=== PATIENT | male | born 1975 | race Caucasian/White ===

== ENCOUNTER 2019-05-02 17:29 | Emergency (ER) | payer OTHER ==
[2019-05-02 17:53] VITALS: BP 218/142
--- NOTE | 2019-05-02 18:04 | UC ---
Respiratory Complaint HPI - HPI Summary HPI Summary: patient her do to sore throat---upon assessment patient has had 1 week of worsening sob, orthopnea, no chest pain and now laryngititis - History of Current Complaint Chief Complaint: UCGeneralIllness Stated Complaint: LOSING VOICE, COUGH Time Seen by Provider: 05/02/19 17:33 Hx Obtained From: Patient Onset/Duration: Gradual Onset, Lasting Weeks - 1 Timing: Constant Pain Intensity: 0 Aggravating Factors: Exertion, Recumbent Position Alleviating Factors: Nothing Associated Signs And Symptoms: Positive: Dyspnea, Wheezing, URI - Allergies/Home Medications Allergies/Adverse Reactions: Allergies Allergy/AdvReac Type Severity Reaction Status Date / Time No Known Allergies Allergy Verified 09/04/12 19:10 PMH/Surg Hx/FS Hx/Imm Hx Previously Healthy: No Cardiovascular History: Hypertension - was treated in his 30's but has been non adherant to treatment for about 10 years - Surgical History Surgical History: Yes Surgery Procedure, Year, and Place: APPENDECTOMY - Family History Known Family History: Positive: Other - throat cancer - Social History Occupation: Employed Full-time Lives: Alone Alcohol Use: None Substance Use Type: None Smoking Status (MU): Never Smoked Tobacco Have You Smoked in the Last Year: No Review of Systems All Other Systems Reviewed And Are Negative: Yes Constitutional: Positive: Negative Skin: Positive: Negative Eyes: Positive: Negative ENT: Positive: Sore Throat Respiratory: Positive: Shortness Of Breath Cardiovascular: Positive: Negative Gastrointestinal: Positive: Negative Genitourinary: Positive: Negative Motor: Positive: Negative Neurovascular: Positive: Negative Musculoskeletal: Positive: Negative Neurological: Positive: Negative Psychological: Positive: Negative Is Patient Immunocompromised?: No Physical Exam Triage Information Reviewed: Yes Appearance: Ill-Appearing, Pain Distress, Obese Vital Signs: Initial Vital Signs Temp 99.9 F 05/02/19 17:48 Pulse 116 05/02/19 17:48 Resp 32 05/02/19 17:48 BP 218/142 05/02/19 17:48 Pulse Ox 93 05/02/19 17:48 Vital Signs Reviewed: Yes Eye Exam: Normal Eyes: Positive: Conjunctiva Clear ENT Exam: Normal ENT: Positive: Normal ENT inspection, Hearing grossly normal, Hoarse voice. Negative: Nasal congestion, Trismus, Muffled voice, Sinus tenderness Dental Exam: Normal Neck exam: Normal Neck: Positive: Supple, Nontender Respiratory Exam: Other Respiratory: Positive: Chest non-tender, Respiratory distress, Wheezing. Negative: No respiratory distress, No accessory muscle use Cardiovascular: Positive: Pulses Normal, Brisk Capillary Refill, Tachycardia Musculoskeletal Exam: Normal Musculoskeletal: Positive: Strength Intact, ROM Intact, No Edema Neurological Exam: Normal Neurological: Positive: Alert, Muscle Tone Normal Psychological Exam: Normal Skin Exam: Normal Diagnostics - EKG Cardiac Rate: Tachycardia Cardiac Rhythm: Sinus: Normal, Other Rhythm: Normal - RBBB Ectopy: None ST Segment: Normal EKG Comparison: Other - no EKG on file to compair Respiratory Course/Dx - Course Course Of Treatment: patient will sign out AMA as he is refusing EMS---however he will do directly to the emergency department for further assessment----report given to ED change nurse to be aware of client for triage assessment - Differential Dx/Diagnosis Provider Diagnosis: Hypertensive crisis, Shortness of breath Discharge ED - Sign-Out/Discharge Documenting (check all that apply): Patient Departure All imaging exams completed and their final reports reviewed: No Studies - Discharge Plan Condition: Guarded Disposition: HOME-RECOMMEND TO ED Patient Education Materials: Hypertensive Crisis (ED) Referrals: Care [facility] [Outside] - As Soon As Possible - Billing Disposition and Condition Condition: GUARDED Disposition: Home-Recommend to ED
== END 2019-05-02 18:10 | disposition home health service (06) ==
LOC: UCEAST 17:29
DX: I16.9 Hypertensive crisis, unspecified (principal); I10 Essential (primary) hypertension; R06.02 Shortness of breath
CPT/HCPCS: 93005; 99202; G0463

== ENCOUNTER 2019-05-02 18:29 | Inpatient (IN) | payer OTHER ==
--- NOTE | 2019-05-02 18:59 | ED ---
Influenza-Like Illness - HPI Summary HPI Summary: Patient complains of shortness of breath when lying down 1 week, sore throat, productive cough 1 week, losing voice 3 days. Denies fever, CP, N/V/D, abdominal pain, change in urine, change in BM. Medical history is HTN, patient noncompliant for many years. Has not seen PCP in many years. Nonsmoker. Denies known cardiac history. Patient is obese. - History of Current Complaint Chief Complaint: EDFluSymptoms Time Seen by Provider: 05/02/19 18:57 Hx Obtained From: Patient, Family/End Worker Onset/Duration: Gradual Onset, Lasting Days Severity: Moderate Associated Signs & Symptoms: Cough, Sore Throat, Headache - Allergy/Home Medications Allergies/Adverse Reactions: Allergies Allergy/AdvReac Type Severity Reaction Status Date / Time No Known Allergies Allergy Verified 05/02/19 18:39 PMH/Surg Hx/FS Hx/Imm Hx Endocrine/Hematology History: Denies: Hx Anticoagulant Therapy Cardiovascular History: Reports: Hx Hypertension History: Denies: Hx Dialysis Sensory History: Denies: Hx Eye Prosthesis Opthamlomology History: Denies: Hx Legally Blind EENT History: Denies: Hx Deafness Neurological History: Denies: Hx Dementia - Surgical History Surgery Procedure, Year, and Place: APPENDECTOMY Infectious Disease History: No Infectious Disease History: Denies: Traveled Outside the [place] in Last 30 Days - Family History Known Family History: Positive: Other - throat cancer - Social History Alcohol Use: None Substance Use Type: Reports: None Smoking Status (MU): Never Smoked Tobacco Have You Smoked in the Last Year: No Review of Systems Constitutional: Negative Eyes: Negative ENT: Negative Cardiovascular: Negative Positive: Shortness Of Breath, Cough Gastrointestinal: Negative Genitourinary: Negative Musculoskeletal: Negative Skin: Negative Neurological: Negative Psychological: Normal All Other Systems Reviewed And Are Negative: Yes Physical Exam Triage Information Reviewed: Yes Vital Signs On Initial Exam: Initial Vitals Temp Pulse Resp BP Pulse Ox 97.8 F 114 16 212/100 96 05/02/19 18:32 05/02/19 18:32 05/02/19 18:32 05/02/19 18:32 05/02/19 18:32 Vital Signs Reviewed: Yes Appearance: Positive: Well-Appearing Skin: Positive: Warm Head/Face: Positive: Normal Head/Face Inspection Eyes: Positive: Normal ENT: Positive: Normal ENT inspection Neck: Positive: Supple Respiratory/Lung Sounds: Positive: Wheezes - bilat Cardiovascular: Positive: Tachycardia Abdomen Description: Positive: Nontender Musculoskeletal: Positive: Normal Neurological: Positive: Normal Psychiatric: Positive: Normal AVPU Assessment: Alert - Nereida Coma Scale Best Eye Response: 4 - Spontaneous Best Motor Response: 6 - Obeys Commands Best Verbal Response: 5 - Oriented Coma Scale Total: 15 Procedures - Sedation Patient Received Moderate/Deep Sedation with Procedure: No Diagnostics - Vital Signs Vital Signs Temp Pulse Resp BP Pulse Ox 05/02/19 18:32 97.8 F 114 16 212/100 96 - Laboratory Result Diagrams: 05/03/19 06:00 05/03/19 06:00 Lab Statement: Any lab studies that have been ordered have been reviewed, and results considered in the medical decision making process. Flu Symptom Course/Dx - Course Course Of Treatment: Patient complains of shortness of breath when lying down 1 week, sore throat, productive cough 1 week, losing voice 3 days. Denies fever, CP, N/V/D, abdominal pain, change in urine, change in BM. Medical history is HTN, patient noncompliant for many years. Has not seen PCP in many years. Nonsmoker. Denies known cardiac history. Patient is obese. Patient tachycardic with heart rate of 114. Tachypneic with respiratory rate of 33. BP initially 218/159. Improved with labetalol 20 mg IV. Chest x-ray unremarkable. EKG sinus tachycardia, heart rate 109, RBBB. CTA chest unremarkable. Elevated troponins 0.07, 0.08. BNP 1100. Admitted to hospitalist. - Diagnoses Provider Diagnoses: CHF (congestive heart failure), Respiratory infection, Hypertensive urgency Discharge ED - Sign-Out/Discharge Documenting (check all that apply): Patient Departure All imaging exams completed and their final reports reviewed: No - Discharge Plan Condition: Stable Disposition: ADMITTED TO [facility] - Billing Disposition and Condition Condition: STABLE Disposition: Admitted to [facility] - Attestation Statements Provider Attestation: Patient was presented to me by Diony HERNADEZ. Patient with 1 week of exertional shortness of breath, orthopnea, cough. Patient's had no fevers, chest pain. Patient does have swelling in his legs at baseline with no change in that per him. Patient had laboratory performed showed an elevated troponin and BNP. Patient said he had one episode of hemoptysis earlier this week so a CTA was performed to rule out PE which was negative. Given patient's elevated cardiac enzymes, patient was admitted for rule out myocarditis versus new-onset heart failure.
[2019-05-02 19:20] LABS: ABS Basophils 0.1 10^3/ul (0-0.2); ABS Eosinophils 0.3 10^3/ul (0-0.6); ABS Monocytes 0.7 10^3/ul (0-0.8); ABS Neutrophils 7.5 10^3/ul (1.5-7.7); Eosinophil % 3.3 %; Hematocrit 44 % (42-52); Hemoglobin 15.6 g/dL (14.0-18.0); Lymphocyte % 10.3 %; Mean Corpuscular HGB Conc 36 g/dL (31-36); Mean Corpuscular Hemoglobin 32 pg (27-31); Mean Corpuscular Volume 89 fL (80-94); Mean Platelet Volume 8.2 fL (7.4-10.4); Platelet Count 315 10^3/uL (150-450); Red Blood Count 4.96 10^6 /uL (4.18-5.48); Red Cell Distribution Width 14 % (10-15); White Blood Count 9.5 10^3/uL (3.5-10.8)
[2019-05-02 19:34] LABS: ALT 18 U/L (7-52); AST 16 U/L (13-39); Albumin 3.8 g/dL (3.2-5.2); Albumin/Globulin Ratio 1.2 (1-3); Alkaline Phosphatase 77 U/L (34-104); Anion Gap 6 mmol/L (2-11); Blood Urea Nitrogen 9 mg/dL (6-24); C Reactive Protein 19.65 mg/L (<8.01); CO2 Carbon Dioxide 29 mmol/L (22-32); Calcium 9.2 mg/dL (8.6-10.3); Chloride 103 mmol/L (101-111); EGFR African American 110.4 (>60); EGFR Non-African American 91.3 (>60); Globulin 3.2 g/dL (2-4); Glucose 129 mg/dL (70-100); Potassium 3.6 mmol/L (3.5-5.0); Sodium 138 mmol/L (135-145)
[2019-05-02 19:36] LABS: Rapid Strep Molecular Negative (Negative)
[2019-05-02 19:40] LABS: Troponin I 0.07 ng/mL (<0.03)
[2019-05-02] MEDS ORDERED: Acetaminophen TAB* 325 MG PO ONE (19:42)
[2019-05-02] MEDS ORDERED: Aspirin 81 mg CHEW TAB* 81 MG TAB.CHEW PO ONE (19:42)
[2019-05-02 19:56] LABS: TSH (Thyroid Stimulating Horm) 0.69 mcIU/mL (0.34-5.60)
[2019-05-02] MEDS ORDERED: Iodixanol* (CONTRAST) 320 MG/ML 100 ML SDV IV ONE (19:58)
[2019-05-02] MEDS ORDERED: Labetalol IV* 5 MG/ML 20 ML VIAL IV PUSH ONE (21:55)
[2019-05-02 22:22] LABS: Troponin I 0.08 ng/mL (<0.03)
[2019-05-02] MEDS ORDERED: Enoxaparin(*) 40 MG/0.4 ML SYR SUBCUT SCH (23:00)
[2019-05-02] MEDS: Lisinopril TAB* 10 MG PO SCH (23:19)
[2019-05-02] MEDS: Carvedilol TAB* 25 MG PO SCH (23:19)
[2019-05-03 01:31] LABS: Troponin I 0.09 ng/mL (<0.03)
--- NOTE | 2019-05-03 01:34 | HP ---
ADMISSION HISTORY AND PHYSICAL: DATE OF ADMISSION: 05/02/19 CHIEF COMPLAINT: Shortness of breath and hoarseness. HISTORY OF PRESENT ILLNESS: This is a 43-year-old gentleman with no significant past medical history as he has not seen a physician in over 10 years , but before that, he was known to have high blood pressure and was on medication until they ran out and he never followed up for refill. His last use of blood pressure medication was about 10 to 15 years ago. He stated for the last 1 week he has been having progressive shortness of breath, especially worse when he is lying down and he is also having difficulty breathing with any activity, even minor activity such as eating, drinking, or lying flat. He does get up at night complaining of severe shortness of breath needing him to turn on the fan and he has been having cough, which is productive of greenish yellow sputum and he has also had increased headache on the right temporal region. He was noted to have elevated blood pressure in the urgent care where he initially went to and was subsequently sent to the emergency room. The patient stated that his headache and his shortness of breath had improved after he received labetalol and Tylenol in the ER. He otherwise was having some coughing spells, which is why he was having an emesis bag next to him, but denies any nausea, vomiting, any constipation, diarrhea, any chest pain or abdominal pain, any palpitations, any fever, or chills. He was, however, complaining of feeling sweaty. He also has been known to be a heavy snorer and states that recently he has been having to sleep on an upright basis. The patient has also been having increasing swelling, especially in his ankles. PAST MEDICAL HISTORY: As mentioned, he has been diagnosed with hypertension, but has been off medications for 10 to 15 years and morbid obesity with BMI noted to be 43. He was admitted in 2001 for depression and suicidal ideation, but currently not on any antipsychotic medications. He has been diagnosed with a seizure in his teenage years, but he states it never recurred for the last 20 to 30 years. PAST SURGICAL HISTORY: He has had an appendectomy when he was 10 to 11 years old and he has also had trauma to the right middle finger, which needed surgical correction. HOME MEDICATIONS: Not on any medications. ALLERGIES: No known allergies. FAMILY HISTORY: Mother age 69 has high blood pressure and had 2 strokes. Father, he is unsure of, thinks that he is in his 60s, alive and unsure of any medical problems. His half brother who is present at bedside states that he had a heart murmur and low blood pressure. SOCIAL HISTORY: The patient smoked for about 15 years, quit over 10 years ago. He uses alcohol occasionally, last use was 3 months ago and the one prior to that was over a year ago. Denies any drug use. 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 REVIEW OF SYSTEMS: A 14-point review of systems did not reveal any new information other than what is mentioned in the HPI. PHYSICAL EXAMINATION GENERAL: The patient is awake, alert, oriented x3, does not appear to be in any acute distress. VITAL SIGNS: In the ER, initial BP was noted to be 212/100 and after the IV labetalol, his blood pressure improved to 156/118; heart rate initially was noted to be 110 to 121, improved to 92; respiration rate was noted to be 28; saturating 92% on room air; temperature was recorded at 97.8 here and in the urgent care it was 99.9. HEAD AND NECK: Atraumatic, normocephalic. Bilateral pupils reactive. Oral mucosa was moist. Neck supple. No jugular venous distention. LUNGS: Clear to auscultation bilaterally. No wheezing, rhonchi, or rales. HEART: S1 and S2, regular, tachycardia. No murmurs, rubs or gallops were appreciated. ABDOMEN: Obese, soft, nontender, nondistended. EXTREMITIES: The patient did have bilateral lower extremity pitting edema up to the knee, which was noted to be 2+ in severity. The patient stated that it was much worse when he initially came in but has kept his legs up ever since he arrived in the emergency room, which decreased his swelling quite a bit during my evaluation. DIAGNOSTIC STUDIES/LAB DATA: CBC was unremarkable. Comprehensive metabolic panel was unremarkable except for minimally elevated random glucose at 129. Troponin was noted to be minimally elevated at 0.07 and subsequent troponin was 0.08. B-Kathy was noted to be elevated at 1107. TSH was normal. Rapid Strep was noted to be negative. PA and lateral chest x-ray appears to be unremarkable. Official read by radiologist is still pending. CTA of the chest was showing no evidence of PE, no other chest pathology and suboptimal inflation. EKG: The patient does have sinus tachycardia at 109 beats per minute with right bundle-branch block pattern and some T-wave inversions noted in the V1 to V2. There is no obvious ST elevation noted in any of the leads, but overall the EKG was difficult to read due to the right bundle-branch pattern. Repeat EKG again shows same exact pattern. There is no past EKG to compare to. IMPRESSION: This is a 43-year-old gentleman with a past medical history of high blood pressure, has been noncompliant for over 15 years, comes in with worsening shortness of breath, lower extremity swelling and elevated blood pressure, likely all secondary to hypertensive urgency, questionable component of an emergency given elevated troponin. ASSESSMENT AND PLAN: 1. Hypertensive urgency/emergency. We will start the patient on BP medication. The patient has already received IV labetalol, which seems to have improved his symptoms. We will add Coreg and lisinopril to get his blood pressure to normal range. 2. Elevated troponin, likely due to hypertensive emergency. We will get serial troponins, but I doubt that this is a NSTEMI. We would consider a Cardiology consult in the morning and an echocardiogram. 3. Right bundle-branch block. Given history of snoring, likely component of cor pulmonale from undiagnosed obstructive sleep apnea. Outpatient sleep study would be recommended. We will also check out pulmonary blood pressure and an echocardiogram. 4. Lower extremity edema secondary to congestive heart failure. Followup echo. No diuretics at this point as the patient's cardiac output should improve once the blood pressure should be controlled. If his lower extremity swelling does not improve, we could consider adding a diuretic at that point. 5. Elevated random glucose. We will follow up on A1c to diagnose any undiagnosed diabetes. 6. Morbid obesity. I have recommended weight loss. 7. DVT prophylaxis with subcu Lovenox. 8. Full Code status. [id number]/[facility] #: [id number] MTDD
[2019-05-03 04:14] LABS: Troponin I 0.08 ng/mL (<0.03)
[2019-05-03 06:14] LABS: ABS Basophils 0.1 10^3/ul (0-0.2); ABS Eosinophils 0.5 10^3/ul (0-0.6); ABS Lymphocytes 1.2 10^3/ul (1.0-4.8); ABS Monocytes 0.9 10^3/ul (0-0.8); ABS Neutrophils 9.1 10^3/ul (1.5-7.7); Eosinophil % 4.2 %; Hematocrit 41 % (42-52); Lymphocyte % 10.1 %; Mean Corpuscular HGB Conc 34 g/dL (31-36); Mean Corpuscular Hemoglobin 31 pg (27-31); Mean Corpuscular Volume 90 fL (80-94); Nucleated Red Blood Cells % 0.1; Platelet Count 336 10^3/uL (150-450); Red Blood Count 4.57 10^6 /uL (4.18-5.48); Red Cell Distribution Width 14 % (10-15); White Blood Count 11.8 10^3/uL (3.5-10.8)
[2019-05-03 06:32] LABS: Anion Gap 6 mmol/L (2-11); Blood Urea Nitrogen 11 mg/dL (6-24); CO2 Carbon Dioxide 28 mmol/L (22-32); Chloride 103 mmol/L (101-111); Cholesterol 152 mg/dL; EGFR African American 97.8 (>60); EGFR Non-African American 80.8 (>60); Glucose 128 mg/dL (70-100); HDL Cholesterol 28.6 mg/dL; LDL Cholesterol 104 mg/dL; Potassium 3.7 mmol/L (3.5-5.0); Sodium 137 mmol/L (135-145); Triglycerides 98 mg/dL
[2019-05-03 06:37] LABS: Troponin I 0.07 ng/mL (<0.03)
[2019-05-03] MEDS ORDERED: Furosemide IV* 10 MG/ML 2 ML VIAL (20 MG) IV ONE (07:47)
[2019-05-03] MEDS: Enoxaparin(*) 40 MG/0.4 ML SYR SUBCUT SCH (08:16)
[2019-05-03] MEDS: Carvedilol TAB* 25 MG PO SCH ×2 (08:16→21:02)
[2019-05-03] MEDS: Lisinopril TAB* 10 MG PO SCH (08:16)
[2019-05-03] MEDS: Aspirin 81 mg CHEW TAB* 81 MG TAB.CHEW PO SCH (08:16)
[2019-05-03 09:11] LABS: Urine Appearance Clear; Urine Bilirubin Negative (Negative); Urine Blood Negative (Negative); Urine Color Yellow; Urine Glucose Negative (Negative); Urine Ketones Negative (Negative); Urine Nitrite Negative (Negative); Urine Protein Negative (Negative); Urine Urobilinogen Negative (Negative)
[2019-05-03] MEDS ORDERED: Potassium Chlor TAB* 20 MEQ TAB.ER PO ONE (10:28)
[2019-05-03] MEDS ORDERED: Azithromycin TAB* 250 MG PO ONE (10:30)
--- NOTE | 2019-05-03 10:31 | PN ---
Subjective Date of Service: 05/03/19 Interval History: Admitted yesterday night. This morning was having shortness of breath, improved with IV lasix X one dose Now reports that he feels as if his heart is having some palpitations or skipping beats- tele reviewed with no correlating arrythmia. He is having cough with yellow colored sputum production Family History: Unchanged from Admission Social History: Unchanged from Admission Past Medical History: Unchanged from Admission Objective Active Medications: Aspirin (Aspirin 81 Mg Chew Tab*) 81 mg PO DAILY [facility] Last Admin: 05/03/19 08:16 Dose: 81 mg Carvedilol (Coreg Tab*) 25 mg PO BID [facility] Last Admin: 05/03/19 08:16 Dose: 25 mg Enoxaparin Sodium (Lovenox(*)) 40 mg SUBCUT 0900 [facility] Last Admin: 05/03/19 08:16 Dose: 40 mg Hydralazine HCl (Apresoline Iv*) 5 mg IV SLOW PU Q6H PRN PRN Reason: Systolic Bp Greater Than:160 Lisinopril (Prinivil Tab*) 10 mg PO DAILY [facility] Last Admin: 05/03/19 08:16 Dose: 10 mg Vital Signs - 8 hr 05/03/19 05/03/19 05/03/19 03:15 04:00 07:33 Temperature 98.0 F 97.7 F Pulse Rate 86 88 92 Respiratory 18 22 Rate Blood Pressure 127/84 156/114 (mmHg) O2 Sat by Pulse 95 94 Oximetry 05/03/19 08:00 Temperature Pulse Rate Respiratory 22 Rate Blood Pressure (mmHg) O2 Sat by Pulse Oximetry Oxygen Devices in Use Now: Nasal Cannula Appearance: Obese male, sitting up on the bed, not in distress Ears/Nose/Mouth/Throat: Mucous Membranes Moist Respiratory: - - No tachypnea, lungs are clear without any wheezing/rales/ rhonchi Cardiovascular: RRR, - - No chest wall tenderness, no murmurs, no JVD, trace lower extremity edema. Abdominal: NL Sounds; No Tenderness; No Distention, No Hepatosplenomegaly Neurological: Alert and Oriented x 3, NL Muscle Strength and Tone Result Diagrams: 05/03/19 06:00 05/03/19 06:00 Assess/Plan/Problems-Billing Assessment: - Patient Problems (1) Hypertensive emergency Current Visit: Yes Status: Acute Code(s): I16.1 - HYPERTENSIVE EMERGENCY SNOMED Code(s): 123905633703815 Comment: Was admitted with hypertensive emergency: elevated BP and elevated troponin. BP has improved. continue coreg and lisinopril. A1c is WNL (2) Pneumonia Current Visit: Yes Status: Acute Code(s): J18.9 - PNEUMONIA, UNSPECIFIED ORGANISM SNOMED Code(s): 629091932 Comment: CXR suggestive of pneumonia. though CT was negative, patient is having cough with sputum production will start rocephin and azithromycin combination for community acquired pneumonia (3) Elevated troponin Current Visit: Yes Status: Acute Code(s): R79.89 - OTHER SPECIFIED ABNORMAL FINDINGS OF BLOOD CHEMISTRY SNOMED Code(s): 630879003 Comment: due to stress caused by elevated BP ECHO pending continue aspirin follow up cardiology recommendations (4) DVT prophylaxis Current Visit: Yes Status: Acute Code(s): Z29.9 - ENCOUNTER FOR PROPHYLACTIC MEASURES, UNSPECIFIED SNOMED Code(s): 915546105 Comment: Rosalina Montoya
[2019-05-03] MEDS: cefTRIAXone(*) 1 GM in NS 0.9% 50 ML* 50 ML IVPB SCH (11:18)
--- NOTE | 2019-05-03 15:14 | CONS ---
CC: Yomi Javier MD CARDIOLOGY CONSULTATION: DATE OF CONSULT: 05/03/19 REASON FOR EVALUATION: Troponin elevation, CHF, hypertension. CONSULTING PHYSICIAN: Dr. Cory Jo. HISTORY OF PRESENT ILLNESS: This is a 43-year-old gentleman with a history of obesity, hypertension, hyperlipidemia, but he discontinued his medicines over 10 years ago and did not follow up with his doctor due to insurance issues. He states that over the last 4 months he has had some orthopnea and props himself up at about 45 degrees at night. He also states it has been harder for him to go upstairs, a little more shortness of breath. Over the last week and a half, he has developed a cough, occasionally productive of green phlegm as well as hoarseness and chills. He went to the [facility] yesterday because of those symptoms and was noted to be markedly hypertensive and was sent to the ER. He was found to have elevated troponin of 0.08 as well as an elevated BNP of 1107 and chest x-ray with a right upper lobe infiltrate. He had a negative CTA. He denies any exertional chest pain. He did notice that he has been having headaches over the last couple of months on and off and had a headache yesterday when he was markedly hypertensive. He also reports he has been taking cold remedies over the last week or so including Robitussin, NyQuil, and DayQuil. He denies using ibuprofen. He does use Excedrin on occasion. 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 He states he is on his feet a fair amount and he has been able to do that, but he has been getting a little more short of breath going up and down the stairs over the last several months.He also snores at night. PAST MEDICAL HISTORY: Includes hypertension, diagnosed probably 15 to 20 years ago, but he has not been compliant with followup and meds for over 10 years. hyperlipidemia obesity seizures as a child. PAST SURGICAL HISTORY: Includes appendectomy. He had trauma to his right middle finger and needed surgical correction. MEDICATIONS: He is not on any medications at home. His medications as an inpatient include: 1. Aspirin 81 mg a day. 2. Azithromycin 250 mg a day. 3. Carvedilol 25 b.i.d. 4. Hydralazine 5 mg IV q.6 p.r.n. 5. Lisinopril 10 mg a day. ALLERGIES: He denies any allergies. FAMILY HISTORY: Includes a mother who of a CVA at 63 and was hypertensive. Father's history is unknown. He has 2 brothers, 1 with seizures and 1 sister. No cardiac problems. SOCIAL HISTORY: He has a history of tobacco use, discontinued in his 30s. He denies asthma, emphysema. He has not had a beer in 4 months, but states he occasionally drinks beer, but not recently. He is , has some children. REVIEW OF SYSTEMS: Review of symptoms x10 was negative except as above. PHYSICAL EXAM: He is a well-developed, obese gentleman in no apparent distress. His weight was 321 pounds. He states he has been as high as 380. Blood pressure 156/114, pulse is 92, 2 L 94% sat, temperature 97.7. JVD of approximately 10 cm. Carotids 2+ without bruits. No cervical lymphadenopathy or thyromegaly. Extraocular muscles are intact. Sclerae anicteric. Cardiac: S1, S2 with S3 gallop. Chest: Decreased breath sounds. Soft rales at the extreme bases. He did not take deep coughs and some scattered expiratory wheezing on the right. Abdomen: Obese, bowel sounds present, nontender. Femoral pulses intact without bruits. Distal pulses intact. Trace edema of the lower extremities. DIAGNOSTIC STUDIES/LAB DATA: Include a white count of 11.8, hemoglobin of 14, hematocrit of 41, platelet count 336. Sodium 137, potassium 3.7, BUN 11, creatinine of 1, glucose elevated at 128, hemoglobin A1c of 5.1. Troponins of 0.08, 0.09, 0.08, and 0.07. BNP of 1107 yesterday. Cholesterol 152, LDL of 104 , HDL 28.6 and triglycerides of 98. Chest x-ray suggested infiltrate in the right upper lung field. He had a CTA, it was negative for PE. EKG from 05/02/19 at 1859 revealed sinus tachycardia with a left axis deviation and right bundle branch block and possible biatrial enlargement and nonspecific ST-T changes similar to the previous of 1757. IMPRESSION: My impression is that Mr. Curtis has poorly controlled hypertension in the setting of possible pneumonia, viral infection as well as cold medications and untreated underlying hypertension. Given his congestive findings, I raised the possibility that he could have hypertensive heart disease with left ventricular dysfunction given elevated BNP, possible volume overload and S3 gallop. He could also have cardiomyopathy of other etiologies including viral or ischemic. I discussed this with him and Dr. Jo and for the time being I recommended the followin. I would recommend blood pressure control as you are doing with carvedilol and lisinopril as tolerated. 2. I would consider adding Aldactone as needed if he indeed has left ventricular dysfunction. 3. I would try to maintain his potassium over 4. 4. I agree with low dose of Lasix p.r.n. and then longer term perhaps spironolactone. 5. I would suggest obtaining an echocardiogram to evaluate left ventricular dysfunction and left ventricular hypertrophy. 6. I also would consider obtaining a nuclear stress test to evaluate for ischemia given his risk factors. 7. I strongly recommended weight reduction. 8. Given his snoring, I would consider possibility of obstructive sleep apnea. 9. 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 10. Further recommendations will depend on his course. [id number]/[facility] #: [id number] [place]
[2019-05-03] MEDS: hydrALAZINE IV* 20 MG/ML VIAL IV SLOW PU PRN (21:10)
[2019-05-04] MEDS ORDERED: Furosemide IV* 10 MG/ML 2 ML VIAL (20 MG) IV SLOW PU ONE (00:48)
[2019-05-04] MEDS ORDERED: Perflutren Lipid Microsphere* 3 ML VIAL ONE (07:49)
[2019-05-04] MEDS: Enoxaparin(*) 40 MG/0.4 ML SYR SUBCUT SCH (08:15)
[2019-05-04] MEDS: Carvedilol TAB* 25 MG PO SCH ×2 (08:16→22:17)
[2019-05-04] MEDS: Lisinopril TAB* 10 MG PO SCH (08:16)
[2019-05-04] MEDS: Azithromycin TAB* 250 MG PO SCH (08:17)
[2019-05-04] MEDS: Aspirin 81 mg CHEW TAB* 81 MG TAB.CHEW PO SCH (08:17)
[2019-05-04] MEDS ORDERED: Influenza VAC *QUAD* 2019-20* 0.5 ML SYRINGE IM ONE (09:00)
--- NOTE | 2019-05-04 10:05 | ECHO ---
*[facility]* [place] [address] Fax #: [phone] Transthoracic Echocardiogram Patient: Don Curtis : 1975 Study Date: 05/04/2019 Age: 43 Gender: M HR: 91 bpm Height: 69 in /175.3 cm BSA: 2.53 m^2 Weight: 320.3 lb /145.6 kg BMI: 47.4 kg/m^2 *[facility]: * [facility] *Referring Physician: * Cory Jo *Reading Physician: * Yomi Javier MD Indications: Congestive Heart Failure. History: Risk factors: Hypertension. Morbidly obese. Dyslipidemia. Conclusions Summary: - Left ventricle: The cavity size is normal. Wall thickness is mildly increased. Systolic function is mildly reduced. The estimated ejection fraction is 45-50%. Mild diffuse hypokinesis with minor variation. Features are consistent with a pseudonormal left ventricular filling pattern, with concomitant abnormal relaxation and increased filling pressure (grade 2 diastolic dysfunction). - Right ventricle: The cavity size is moderately dilated. Systolic function is mildly to moderately reduced. Systolic pressure is mildly increased. - Ventricular septum: There is septal flattening of the interventricular septum consistent with RV volume or pressure overload. - Left atrium: The atrium is moderately to severely dilated. - Right atrium: The atrium is moderately dilated. - Mitral valve: There is trace to mild regurgitation. - Pulmonary arteries: Systolic pressure is mildly increased. Study data: Transthoracic echocardiogram. Procedure: Transthoracic echocardiography was performed. Image quality was suboptimal. The study was technically limited due to body habitus. Intravenous Definity , 4 mlswas administered. Complete 2D, spectral Doppler, and color flow Doppler. Location: Bedside. Patient status: Inpatient. Patient room number: 445-02. No prior study is available for comparison. Rhythm: Normal sinus rhythm. Findings Left ventricle: The cavity size is normal. Wall thickness is mildly increased. Systolic function is mildly reduced. The estimated ejection fraction is 45-50%. Mild diffuse hypokinesis with minor variation. There is interventricular dyssynchrony. Features are consistent with a pseudonormal left ventricular filling pattern, with concomitant abnormal relaxation and increased filling pressure (grade 2 diastolic dysfunction). Right ventricle: The cavity size is moderately dilated. Systolic function is mildly to moderately reduced. Systolic pressure is mildly increased. Ventricular septum: There is septal flattening of the interventricular septum consistent with RV volume or pressure overload. Left atrium: The atrium is moderately to severely dilated. Right atrium: The atrium is moderately dilated. Mitral valve: The leaflets are mildly thickened. There is no evidence of stenosis. There is trace to mild regurgitation. Aortic valve: The valve is trileaflet. The leaflets are normal thickness. There is no evidence of stenosis. There is no significant regurgitation. Tricuspid valve: Not well visualized. There is no evidence of stenosis. There is mild regurgitation. Pulmonic valve: Not well visualized. There is no evidence of stenosis. Aorta: Aortic root: The aortic root is appears normal. Ascending aorta: The ascending aorta is appears normal. Aortic arch: The aortic arch is appears normal. Pericardium: A prominent pericardial fat pad is present. There is no significant pericardial effusion. Pulmonary arteries: The main pulmonary artery is normal-sized. Systolic pressure is mildly increased. Systemic veins: Inferior vena cava: The vessel is mildly dilated. There is (>= 50%) respiratory change in the IVC dimension. Measurements Left ventricle Value Ref Aortic valve Value Ref KRISTINE, LAX 5.4 cm 4.2 - 5.8 Andres diam, ED 2.3 cm ----- ESD, LAX (H) 4.1 cm 2.5 - 4.0 Peak v, S 1.31 m/sec ----- FS, LAX 25 % 25 - 43 VTI, S 18.9 cm ----- PW, ED, LAX (H) 1.2 cm 0.6 - 1.0 Mean grad, S 3.0 mm Hg ----- FS 25 % 25 - 43 Peak grad, S 7.0 mm Hg ----- PW, ED (H) 1.2 cm 0.6 - 1.0 LVOT/AV, VTI ratio 0.69 ----- E', lat andres, TDI (L) 9.7 cm/sec >=10.0 E/e', lat andres, 8 Mitral valve Value Ref TDI Peak E 0.73 m/sec ----- E', med andres, TDI (L) 4.9 cm/sec >=7.0 Peak A 0.41 m/sec --- -- E/e', med andres, 15 Decel time 165 ms ----- TDI Peak grad, D 2.1 mm Hg ----- E', avg, TDI 7.3 cm/sec Peak E/A ratio 1.8 ----- E/e', avg, TDI 10 <=14 Pulmonic valve Value Ref LVOT Value Ref Peak v, S 0.73 m/sec ----- Peak gold, S 0.84 m/sec Peak grad, S 2.0 mm Hg ----- VTI, S 13.0 cm Mean grad, S 2 mm Hg Tricuspid valve Value Ref TR peak v (H) 2.9 m/sec <=2.8 Ventricular septum Value Ref Peak RV-RA grad, S 34 mm Hg ----- IVS, ED (H) 1.3 cm 0.6 - 1.0 Aortic root Value Ref Right ventricle Value Ref Root diam 3.2 cm <4.5 AW thickness, ED (H) 0.6 cm 0.1 - 0.5 KRISTINE, LAX 3.7 cm Ascending aorta Value Ref KRISTINE minor ax, A4C (H) 4.6 cm 1.9 - 3.5 AAo AP diam, S 3.5 cm ----- mid Pressure, S 42 mm Hg Aortic arch Value Ref Arch diam 2.1 cm ----- Left atrium Value Ref AP dim, ES (H) 4.40 cm 3.00 - Decending aorta Value Ref 4.00 Lluvia peak gold 0.7 m/sec ----- ML dim, A4C 5.9 cm SI dim, A4C 7.2 cm Pulmonary artery Value Ref Vol/bsa, ES, 1-p (H) 43 ml/m^2 12 - 37 Pressure, S 40.0 mm Hg ----- A4C Vol/bsa, ES, A/L (H) 47 ml/m^2 16 - 34 Inferior vena cava Value Ref Diam 2.5 cm ----- Right atrium Value Ref SI dim, ES (H) 6.2 cm 3.4 - 5.3 ML dim, ES, A4C (H) 5.0 cm 2.6 - 4.4 Estimated RAP 8 mm Hg Legend: (L) and (H) lesley values outside specified reference range. Prepared and electronically signed by Yomi Javier MD 05/04/2019 10:04
[2019-05-04 10:58] LABS: ABS Basophils 0.1 10^3/ul (0-0.2); ABS Eosinophils 0.4 10^3/ul (0-0.6); ABS Lymphocytes 0.9 10^3/ul (1.0-4.8); ABS Monocytes 0.6 10^3/ul (0-0.8); Eosinophil % 3.7 %; Hematocrit 43 % (42-52); Lymphocyte % 9.5 %; Mean Corpuscular HGB Conc 35 g/dL (31-36); Mean Corpuscular Hemoglobin 31 pg (27-31); Mean Corpuscular Volume 90 fL (80-94); Mean Platelet Volume 8.1 fL (7.4-10.4); Nucleated Red Blood Cells % 0.3; Platelet Count 325 10^3/uL (150-450); Red Blood Count 4.83 10^6 /uL (4.18-5.48); Red Cell Distribution Width 14 % (10-15)
[2019-05-04 11:16] LABS: Calcium 9.2 mg/dL (8.6-10.3); EGFR African American 122.9 (>60); EGFR Non-African American 101.6 (>60); Potassium 4.3 mmol/L (3.5-5.0)
[2019-05-04 11:20] LABS: Troponin I 0.05 ng/mL (<0.03)
[2019-05-04] MEDS: cefTRIAXone(*) 1 GM in NS 0.9% 50 ML* 50 ML IVPB SCH (11:21)
--- NOTE | 2019-05-04 12:46 | PN ---
Subjective Date of Service: 05/04/19 Interval History: Had first part of the stress today. reports no issues, no chest pain, on oxygen but reports no shortness of breath Family History: Unchanged from Admission Social History: Unchanged from Admission Past Medical History: Unchanged from Admission Objective Active Medications: Albuterol/Ipratropium (Duoneb (Albuterol 2.5 Mg/Ipratropium 0.5 Mg)) 1 neb INH Q6H [facility] Aspirin (Aspirin 81 Mg Chew Tab*) 81 mg PO DAILY [facility] Last Admin: 05/04/19 08:17 Dose: 81 mg Azithromycin (Zithromax Tab*) 250 mg PO DAILY [facility] Last Admin: 05/04/19 08:17 Dose: 250 mg Carvedilol (Coreg Tab*) 25 mg PO BID [facility] Last Admin: 05/04/19 08:16 Dose: 25 mg Enoxaparin Sodium (Lovenox(*)) 40 mg SUBCUT 0900 [facility] Last Admin: 05/04/19 08:15 Dose: 40 mg Hydralazine HCl (Apresoline Iv*) 5 mg IV SLOW PU Q6H PRN PRN Reason: Systolic Bp Greater Than:160 Last Admin: 05/03/19 21:10 Dose: 5 mg Ceftriaxone Sodium 1 gm/ (Sodium Chloride) 50 mls @ 200 mls/hr IVPB Q24H [facility] Last Admin: 05/04/19 11:21 Dose: 200 mls/hr Lisinopril (Prinivil Tab*) 10 mg PO DAILY [facility] Last Admin: 05/04/19 08:16 Dose: 10 mg Prednisone (Deltasone Tab*) 40 mg PO DAILY [facility] Vital Signs - 8 hr 05/04/19 05/04/19 07:58 08:15 Temperature 97.4 F Pulse Rate 81 Respiratory 20 20 Rate Blood Pressure 150/116 (mmHg) O2 Sat by Pulse 97 Oximetry Oxygen Devices in Use Now: Nasal Cannula Appearance: obese male, lying in bed, not in distress Eyes: PERRLA Respiratory: - - there is no tachypnea, there is moderate wheezing throughout all lung plata. Cardiovascular: NL Sounds; No Murmurs; No JVD, RRR, - - trace lower extremity edema Abdominal: NL Sounds; No Tenderness; No Distention, No Hepatosplenomegaly Neurological: Alert and Oriented x 3 Result Diagrams: 05/04/19 10:33 05/04/19 10:33 Microbiology and Other Data: Microbiology 05/03/19 08:14 Gram Stain - Final Sputum Expectorated Assess/Plan/Problems-Billing Assessment: - Patient Problems (1) Hypertensive emergency Current Visit: Yes Status: Acute Code(s): I16.1 - HYPERTENSIVE EMERGENCY SNOMED Code(s): 553095919965049 Comment: Was admitted with hypertensive emergency: elevated BP and elevated troponin. BP has improved. continue coreg and lisinopril. A1c is WNL (2) Pneumonia Current Visit: Yes Status: Acute Code(s): J18.9 - PNEUMONIA, UNSPECIFIED ORGANISM SNOMED Code(s): 870654680 Comment: CXR suggestive of pneumonia. though CT was negative, patient is having cough with sputum production Day 2 of rocephin/azithromycin (3) Elevated troponin Current Visit: Yes Status: Acute Code(s): R79.89 - OTHER SPECIFIED ABNORMAL FINDINGS OF BLOOD CHEMISTRY SNOMED Code(s): 355362584 Comment: due to stress caused by elevated BP ECHO pending continue aspirin had first part of stress test today, second part tomorrow. (4) DVT prophylaxis Current Visit: Yes Status: Acute Code(s): Z29.9 - ENCOUNTER FOR PROPHYLACTIC MEASURES, UNSPECIFIED SNOMED Code(s): 759261491 Comment: Lovenox subQ (5) Reactive airway disease Current Visit: Yes Status: Acute Code(s): J45.909 - UNSPECIFIED ASTHMA, UNCOMPLICATED SNOMED Code(s): 603109252639 Comment: due to pneumonia started prednione duonebs.
[2019-05-04] MEDS ORDERED: Albuterol/Ipratropium NEB.SOL* Albuterol 2.5 MG/Ipratropium 0.5 MG 3 ML INH SCH (13:00)
[2019-05-04] MEDS ORDERED: Acetaminophen TAB* 325 MG PO PRN (22:15)
[2019-05-05] MEDS ORDERED: Aminophylline IV* 25 MG/ML 10 ML VIAL ONE (07:37)
[2019-05-05] MEDS ORDERED: Regadenoson* 0.4 MG/5 ML SYRINGE ONE (07:37)
[2019-05-05] MEDS: Carvedilol TAB* 25 MG PO SCH ×2 (07:40→20:29)
[2019-05-05] MEDS: Aspirin 81 mg CHEW TAB* 81 MG TAB.CHEW PO SCH (07:40)
[2019-05-05] MEDS: Enoxaparin(*) 40 MG/0.4 ML SYR SUBCUT SCH (07:40)
[2019-05-05] MEDS: Azithromycin TAB* 250 MG PO SCH (07:41)
[2019-05-05] MEDS: Lisinopril TAB* 10 MG PO SCH (07:41)
[2019-05-05] MEDS: cefTRIAXone(*) 1 GM in NS 0.9% 50 ML* 50 ML IVPB SCH (10:44)
[2019-05-05] MEDS: Albuterol/Ipratropium NEB.SOL* Albuterol 2.5 MG/Ipratropium 0.5 MG 3 ML INH PRN (10:51)
--- NOTE | 2019-05-05 11:44 | PN ---
Subjective Date of Service: 05/05/19 Interval History: Overnight he took the oxygen off, his oxygen level down below 90%. This morning he went the second part of the stress test. Currently no chest pain, no palpitations. He is currently on oxygen, but reports no trouble breathing, has dyspnea on exertion. overnight also received IV lasix. Family History: Unchanged from Admission Social History: Unchanged from Admission Past Medical History: Unchanged from Admission Objective Active Medications: Acetaminophen (Tylenol Tab*) 650 mg PO Q4H PRN PRN Reason: FEVER/ PAIN MILD Albuterol/Ipratropium (Duoneb (Albuterol 2.5 Mg/Ipratropium 0.5 Mg)) 1 neb INH [id number] AWAKE PRN PRN Reason: SOB/WHEEZING Last Admin: 05/05/19 10:51 Dose: 1 neb Aspirin (Aspirin 81 Mg Chew Tab*) 81 mg PO DAILY [facility] Last Admin: 05/05/19 07:40 Dose: 81 mg Azithromycin (Zithromax Tab*) 250 mg PO DAILY [facility] Last Admin: 05/05/19 07:41 Dose: 250 mg Carvedilol (Coreg Tab*) 25 mg PO BID [facility] Last Admin: 05/05/19 07:40 Dose: 25 mg Enoxaparin Sodium (Lovenox(*)) 40 mg SUBCUT 0900 [facility] Last Admin: 05/05/19 07:40 Dose: 40 mg Hydralazine HCl (Apresoline Iv*) 5 mg IV SLOW PU Q6H PRN PRN Reason: Systolic Bp Greater Than:160 Last Admin: 05/03/19 21:10 Dose: 5 mg Ceftriaxone Sodium 1 gm/ (Sodium Chloride) 50 mls @ 200 mls/hr IVPB Q24H [facility] Last Admin: 05/05/19 10:44 Dose: 200 mls/hr Lisinopril (Prinivil Tab*) 10 mg PO DAILY [facility] Last Admin: 05/05/19 07:41 Dose: 10 mg Prednisone (Deltasone Tab*) 40 mg PO DAILY [facility] Last Admin: 05/05/19 07:40 Dose: 40 mg Vital Signs - 8 hr 05/05/19 05/05/19 05/05/19 07:33 08:00 10:30 Temperature 97.6 F 97.0 F Pulse Rate 83 86 Respiratory 18 18 22 Rate Blood Pressure 147/100 121/84 (mmHg) O2 Sat by Pulse 97 94 Oximetry Oxygen Devices in Use Now: Nasal Cannula Appearance: Obese male lying in bed, not in distress Eyes: PERRLA Ears/Nose/Mouth/Throat: Mucous Membranes Moist Respiratory: - - no tachypnea, no use of accessory muscles, minimal crackles at lung bases. Cardiovascular: NL Sounds; No Murmurs; No JVD, RRR, - - trace lower extremity edema. no calf tenderness Abdominal: NL Sounds; No Tenderness; No Distention, No Hepatosplenomegaly Neurological: Alert and Oriented x 3, NL Sensation, NL Muscle Strength and Tone Result Diagrams: 05/04/19 10:33 05/04/19 10:33 Microbiology and Other Data: Microbiology 05/03/19 08:14 Gram Stain - Final Sputum Expectorated Assess/Plan/Problems-Billing Assessment: - Patient Problems (1) Hypertensive emergency Current Visit: Yes Status: Acute Code(s): I16.1 - HYPERTENSIVE EMERGENCY SNOMED Code(s): 013045038326035 Comment: Was admitted with hypertensive emergency: elevated BP and elevated troponin. BP has improved. continue coreg and lisinopril- increasing lisinopril dose. A1c is WNL ECHO reveals EF 45-50%, with grade 2 diastolic dysfunction (2) Pneumonia Current Visit: Yes Status: Acute Code(s): J18.9 - PNEUMONIA, UNSPECIFIED ORGANISM SNOMED Code(s): 131922424 Comment: CXR suggestive of pneumonia. though CT was negative, patient is having cough with sputum production Day 3 of rocephin/azithromycin (3) Elevated troponin Current Visit: Yes Status: Acute Code(s): R79.89 - OTHER SPECIFIED ABNORMAL FINDINGS OF BLOOD CHEMISTRY SNOMED Code(s): 329278397 Comment: due to stress caused by elevated BP continue aspirin stress test done, results pending (4) DVT prophylaxis Current Visit: Yes Status: Acute Code(s): Z29.9 - ENCOUNTER FOR PROPHYLACTIC MEASURES, UNSPECIFIED SNOMED Code(s): 038697620 Comment: Lovenox subQ (5) Reactive airway disease Current Visit: Yes Status: Acute Code(s): J45.909 - UNSPECIFIED ASTHMA, UNCOMPLICATED SNOMED Code(s): 036842798151 Comment: due to pneumonia started prednione duonebs. (6) Acute CHF Current Visit: Yes Status: Acute Code(s): I50.9 - HEART FAILURE, UNSPECIFIED SNOMED Code(s): 57216603 Comment: with HTN emergency ECHO with EF 45-50% and diastolic dysfunction, now on coreg, lisinopril, adding aldactone received two doses of lasix throughout the admission
[2019-05-05] MEDS: Spironolactone TAB* 25 MG PO SCH (13:31)
[2019-05-05] MEDS: Atorvastatin* 20 MG TAB PO SCH (20:29)
[2019-05-06] MEDS: Azithromycin TAB* 250 MG PO SCH (09:15)
[2019-05-06] MEDS: Spironolactone TAB* 25 MG PO SCH (09:15)
[2019-05-06] MEDS: Enoxaparin(*) 40 MG/0.4 ML SYR SUBCUT SCH (09:16)
[2019-05-06] MEDS: Aspirin 81 mg CHEW TAB* 81 MG TAB.CHEW PO SCH (09:16)
[2019-05-06] MEDS: Lisinopril TAB* 10 MG PO SCH (09:16)
[2019-05-06] MEDS: Carvedilol TAB* 25 MG PO SCH ×2 (09:16→20:52)
[2019-05-06 11:03] LABS: ALT 12 U/L (7-52); AST 13 U/L (13-39); Anion Gap 6 mmol/L (2-11); BUN/Creatinine Ratio 25.8 (8-20); Blood Urea Nitrogen 23 mg/dL (6-24); CO2 Carbon Dioxide 28 mmol/L (22-32); Calcium 9.2 mg/dL (8.6-10.3); Chloride 104 mmol/L (101-111); EGFR African American 111.8 (>60); EGFR Non-African American 92.4 (>60); Glucose 104 mg/dL (70-100); Potassium 4.1 mmol/L (3.5-5.0); Sodium 138 mmol/L (135-145)
[2019-05-06 11:31] LABS: Troponin I 0.04 ng/mL (<0.03)
--- NOTE | 2019-05-06 11:58 | PN ---
Subjective Date of Service: 05/06/19 Interval History: No acute issues overnight trying to wean off oxygen, remains on one liter nasal canula currently. Reports he continues to cough- yellow to white sputum production. Family History: Unchanged from Admission Social History: Unchanged from Admission Past Medical History: Unchanged from Admission Objective Active Medications: Acetaminophen (Tylenol Tab*) 650 mg PO Q4H PRN PRN Reason: FEVER/ PAIN MILD Albuterol/Ipratropium (Duoneb (Albuterol 2.5 Mg/Ipratropium 0.5 Mg)) 1 neb INH [id number] AWAKE PRN PRN Reason: SOB/WHEEZING Last Admin: 05/05/19 10:51 Dose: 1 neb Aspirin (Aspirin 81 Mg Chew Tab*) 81 mg PO DAILY [facility] Last Admin: 05/06/19 09:16 Dose: 81 mg Atorvastatin Calcium (Lipitor*) 20 mg PO 2100 [facility]PLACED [facility] Last Admin: 05/05/19 20:29 Dose: 20 mg Azithromycin (Zithromax Tab*) 250 mg PO DAILY [facility] Last Admin: 05/06/19 09:15 Dose: 250 mg Carvedilol (Coreg Tab*) 25 mg PO BID [facility]PL[facility] Last Admin: 05/06/19 09:16 Dose: 25 mg Enoxaparin Sodium (Lovenox(*)) 40 mg SUBCUT 0900 [facility]PLACED [facility] Last Admin: 05/06/19 09:16 Dose: 40 mg Hydralazine HCl (Apresoline Iv*) 5 mg IV SLOW PU Q6H PRN PRN Reason: Systolic Bp Greater Than:160 Last Admin: 05/03/19 21:10 Dose: 5 mg Ceftriaxone Sodium 1 gm/ (Sodium Chloride) 50 mls @ 200 mls/hr IVPB Q24H [facility]PLACED [facility] Last Admin: 05/05/19 10:44 Dose: 200 mls/hr Lisinopril (Prinivil Tab*) 10 mg PO DAILY [facility] Last Admin: 05/06/19 09:16 Dose: 10 mg Prednisone (Deltasone Tab*) 40 mg PO DAILY [facility] Last Admin: 05/06/19 09:16 Dose: 40 mg Spironolactone (Aldactone Tab*) 25 mg PO DAILY [facility] Last Admin: 05/06/19 09:15 Dose: 25 mg Vital Signs - 8 hr 05/06/19 05/06/19 07:21 08:00 Temperature 97.8 F Pulse Rate 71 Respiratory 18 18 Rate Blood Pressure 134/107 (mmHg) O2 Sat by Pulse 96 Oximetry Oxygen Devices in Use Now: Nasal Cannula Appearance: Obese male, sitting on chair, not in distress Eyes: PERRLA Ears/Nose/Mouth/Throat: Mucous Membranes Moist Respiratory: - - mild expiratory wheezing. Cardiovascular: NL Sounds; No Murmurs; No JVD, RRR, - - trace bilateral lower extremity edema, no calf tenderness Abdominal: NL Sounds; No Tenderness; No Distention, No Hepatosplenomegaly Neurological: Alert and Oriented x 3, NL Muscle Strength and Tone Result Diagrams: 05/04/19 10:33 05/06/19 05:33 Microbiology and Other Data: Microbiology 05/03/19 08:14 Gram Stain - Final Sputum Expectorated Assess/Plan/Problems-Billing Assessment: - Patient Problems (1) Hypertensive emergency Current Visit: Yes Status: Acute Code(s): I16.1 - HYPERTENSIVE EMERGENCY SNOMED Code(s): 391950559632374 Comment: Was admitted with hypertensive emergency: elevated BP and elevated troponin. BP has improved. continue coreg and lisinopril- increasing lisinopril dose. A1c is WNL ECHO reveals EF 45-50%, with grade 2 diastolic dysfunction (2) Pneumonia Current Visit: Yes Status: Acute Code(s): J18.9 - PNEUMONIA, UNSPECIFIED ORGANISM SNOMED Code(s): 438358901 Comment: CXR suggestive of pneumonia. though CT was negative, patient is having cough with sputum production Day 4 of rocephin/azithromycin (3) Elevated troponin Current Visit: Yes Status: Acute Code(s): R79.89 - OTHER SPECIFIED ABNORMAL FINDINGS OF BLOOD CHEMISTRY SNOMED Code(s): 844446178 Comment: due to stress caused by elevated BP continue aspirin stress test with an area of ischemia in the apex, and intermediate risk, d/w Dr. Javier, at this point medical managment, follow up as outpatient to consider further eval with CATH. on asa, started on statin LDL at 104, A1c was WNL Discussed with patient extensively regarding weight loss and importance of taking medications and following up with doctor's appointments. (4) DVT prophylaxis Current Visit: Yes Status: Acute Code(s): Z29.9 - ENCOUNTER FOR PROPHYLACTIC MEASURES, UNSPECIFIED SNOMED Code(s): 530395837 Comment: Loveranjeetx subQ (5) Reactive airway disease Current Visit: Yes Status: Acute Code(s): J45.909 - UNSPECIFIED ASTHMA, UNCOMPLICATED SNOMED Code(s): 484497003101 Comment: due to pneumonia started prednione duonebs. (6) Acute CHF Current Visit: Yes Status: Acute Code(s): I50.9 - HEART FAILURE, UNSPECIFIED SNOMED Code(s): 22401899 Comment: with HTN emergency ECHO with EF 45-50% and diastolic dysfunction, now on coreg, lisinopril, aldactone received two doses of lasix throughout the admission Status and Disposition: wean off oxygen discharge home when medically stable.
[2019-05-06] MEDS: cefTRIAXone(*) 1 GM in NS 0.9% 50 ML* 50 ML IVPB SCH (12:07)
[2019-05-06 12:41] LABS: Creatine Kinase 82 U/L (10-223)
[2019-05-06] MEDS: Atorvastatin* 20 MG TAB PO SCH (20:52)
[2019-05-07] MEDS: hydrALAZINE IV* 20 MG/ML VIAL IV SLOW PU PRN (03:49)
[2019-05-07] MEDS ORDERED: hydrALAZINE IV* 20 MG/ML VIAL ONE (06:54)
[2019-05-07] MEDS ORDERED: hydrALAZINE IV* 20 MG/ML VIAL IV SLOW PU ONE (07:25)
[2019-05-07] MEDS: Albuterol/Ipratropium NEB.SOL* Albuterol 2.5 MG/Ipratropium 0.5 MG 3 ML INH PRN (07:26)
[2019-05-07] MEDS ORDERED: Lisinopril TAB* 10 MG PO SCH (09:00)
[2019-05-07] MEDS: Azithromycin TAB* 250 MG PO SCH (09:18)
[2019-05-07] MEDS: Aspirin 81 mg CHEW TAB* 81 MG TAB.CHEW PO SCH (09:19)
[2019-05-07] MEDS: Carvedilol TAB* 25 MG PO SCH (09:19)
[2019-05-07] MEDS: Spironolactone TAB* 25 MG PO SCH (09:19)
[2019-05-07] MEDS: Enoxaparin(*) 40 MG/0.4 ML SYR SUBCUT SCH (10:41)
[2019-05-07] MEDS: cefTRIAXone(*) 1 GM in NS 0.9% 50 ML* 50 ML IVPB SCH (10:41)
[2019-05-07 13:25] VITALS: BP 140/101
--- NOTE | 2019-05-07 17:16 | DS ---
CC: Dr. Yomi Javier; [facility]* DISCHARGE SUMMARY: DATE OF ADMISSION: 05/02/19 DATE OF DISCHARGE: 05/07/19 REASON FOR THE ADMISSION: Shortness of breath and hoarseness. DISCHARGE DIAGNOSES: 1. Essential hypertension. 2. Hypertensive emergency. 3. Pneumonia. 4. Elevated troponin due to hypertensive emergency, now with coronary artery disease. 5. Reactive airway disease. 6. Acute congestive heart failure with somewhat preserved ejection fraction. HOSPITAL COURSE: This is a 43-year-old male with no significant past medical history, who has not seen a doctor in about 10 years. He was before that diagnosed with high blood pressure and was on medications, but he never followed up or got a refill. He was in the emergency room with a blood pressure of 212/110, after which he received IV labetalol and blood pressure improved to 156/118. For his hypertensive urgency/emergency, we started him on Coreg and lisinopril to get his blood pressure in normal range. The patient was also diagnosed with elevated troponin likely in the setting of hypertensive emergency. Cardiology was consulted and an echocardiogram was ordered. The patient also received 2 doses of IV Lasix throughout the hospital course. The patient was through the course found to have pneumonia. The chest x-ray was read as patchy infiltrate overlying the right upper lung that is consistent with pneumonia. The patient was started on Rocephin and azithromycin. Through the course, the patient was also noted to have wheezing for which we diagnosed him with reactive airway disease and started him on prednisone and DuoNeb. The patient completed 5 days of Rocephin/azithromycin treatment. The patient underwent a nuclear medicine stress test, which revealed global hypokinesis with decreased LV ejection fraction calculated to be 40%, finding suggestive of small to moderate- sized area of ischemia centered in the cardiac apex, assessment was intermediate risk. After which, I had a discussion with Dr. Javier, clinical quality assurance specialist, who recommended medical management and will see the patient as an outpatient and consider additional testing including cardiac catheterization. The patient was also started on a statin as his LDL was 104. The patient's blood pressure continued to improve through the hospital course and the patient was initially started on oxygen, his oxygenation improved and he is currently 93% on room air. PHYSICAL EXAMINATION: Blood pressure is 140/101, heart rate of 86, respiratory rate of 16, O2 saturation of 93% on room air, temperature of 97.4 Fahrenheit. Obese male, lying in bed, in no acute distress. Pupils equal, round, and reactive to light. Atraumatic, normocephalic. There is no chest wall tenderness. Regular rate and rhythm. No murmurs. There is minimal wheezing heard at the lower lung bases. There is no tachypnea, no use of accessory muscles. There is trace lower extremity edema, bilateral lower extremities. Abdomen: There are normoactive bowel sounds. Abdomen is soft, nontender, nondistended. Neurological: He is awake, alert, and oriented x3, following commands with no focal neurological deficits. DISCHARGE PLANNING: DISCHARGE CONDITION: Stable. DISCHARGE DISPOSITION: Home. DISCHARGE DIET: Heart-healthy diet. DISCHARGE MEDICATIONS: Include: 1. Albuterol inhaler 1 puff every 4 hours as needed for shortness of breath and wheezing. 2. Aspirin 81 mg daily. 3. Lipitor 20 mg daily. 4. Carvedilol 25 mg b.i.d. 5. Lisinopril 20 mg daily. 6. Prednisone 40 mg to take 1 day tomorrow. 7. Spironolactone 25 mg daily. DISCHARGE FOLLOWUP/INSTRUCTIONS: 1. The patient will need to follow up with [facility] in 1 to 2 weeks. 2. To follow up with Dr. Yomi Javier in 1 month. 3. The patient has been instructed to go to all of his appointments and take his medications as prescribed. 4. The patient was instructed to return to the emergency room for chest pain, trouble breathing, worsening shortness of breath or worsening cough, or if any new issue arises. 5. Additionally, we discussed with the patient that he will need a sleep study as an outpatient to diagnose possible sleep apnea. 6. Education spencer, we discussed with the patient regarding weight loss as well as consequences of uncontrolled hypertension as well as coronary artery disease and heart failure. TIME SPENT: It should be noted that about 40 minutes was spent with the patient [id number] and with discharge planning, discussing with the patient regarding his medications as well as importance of followups. [id number] #: [id number]
[2019-05-08 13:45] LABS: Mycoplasma pneumoniae IgG Ab Positive (Negative); Mycoplasma pneumoniae IgM Ab Negative (Negative)
== END 2019-05-07 15:43 | disposition home or self-care (01) | DRG 199 ==
LOC: ED 18:29 → MEDTELE 23:00
PROVIDERS: ADMIT Internal Medicine; ATTEND Internal Medicine
DX: I16.0 Hypertensive urgency (principal); I21.4 Non-ST elevation (NSTEMI) myocardial infarction; I50.31 Acute diastolic (congestive) heart failure; J18.9 Pneumonia, unspecified organism; Z68.42 Body mass index [BMI] 45.0-49.9, adult; I11.0 Hypertensive heart disease with heart failure; R74.8 Abnormal levels of other serum enzymes; J45.909 Unspecified asthma, uncomplicated; E66.01 Morbid (severe) obesity due to excess calories; I25.10 Atherosclerotic heart disease of native coronary artery without angina pectoris; E78.5 Hyperlipidemia, unspecified; I45.10 Unspecified right bundle-branch block; Z82.49 Family history of ischemic heart disease and other diseases of the circulatory system; Z82.3 Family history of stroke; Z87.891 Personal history of nicotine dependence
CPT/HCPCS: 36415; 71045; 71046; 71275; 78452; 80048; 80053; 80061; 81003; 82550; 83036; 83605; 83880; 84443; 84450; 84460; 84484; 85025; 86140; 86738; 87070; 87205; 87651; 87899; 93005; 93017; 93306; 94640; 94762; 96374; 99284; A9270-GY; A9502; C8929; J0280; J0360; J0696; J1650; J1940; J2785; J7512; Q9967